=== PATIENT | male | born 1975 | race Caucasian/White ===

== ENCOUNTER 2024-12-19 14:59 | Emergency (ER) | payer MEDICARE, MEDICAID, SELFPAY ==
[2024-12-19] VITALS (8 sets, daily range): BP systolic 86–144; BP diastolic 55–88; PULSE 77–112; RESP 13–20; TEMP 36.6–36.8; O2SAT 98–100; BMI 17.2
--- NOTE | 2024-12-19 14:56 | ECG_ITS ---
APPROVED REPORT Exam: Resting ECG HR:81 bpm ECG Measurements Heart Rate 81 AXES IN 121 P 7 QRSd 102 QRS 91 QT 405 T 46 QTc 443 Conclusion Sinus rhythm Right axis deviation Electronically signed by : VICENTE BELL, 12/19/2024 22:48:00
--- NOTE | 2024-12-19 15:07 | XR_ITS ---
FINAL REPORT TECHNIQUE: Single view chest CLINICAL HISTORY: L sided CP radiating to L lateral chest FINDINGS: A single view of the chest was obtained. The heart and mediastinum are within normal limits. The lungs are clear. There is no pneumothorax. IMPRESSION: No acute cardiopulmonary process. Reviewed, Interpreted and Dictated by Calvin Harvey MD Transcribed by Geeta Walton Authenticated and [facility]
[2024-12-19 15:14] LABS: Basophils % 0.4 % (0.1-2.0); Eosinophils # 0.1 K/mm3 (0.0-0.4); Hematocrit 43.7 % (42.0-52.0); Hemoglobin 14.4 g/dL (14.1-18.0); Lymphocytes # 2.1 K/mm3 (0.7-4.5); Lymphocytes % 29.8 % (10-50); Mean Corpuscular Volume 94.2 fl (80-94); Mean Platelet Volume 10.2 fl (7.4-10.4); Monocytes # 0.6 K/mm3 (0.1-1.0); Monocytes % 8.8 % (1.7-9.3); Neutrophils # 4.2 K/mm3 (1.8-7.8); Neutrophils % 59.7 % (37.0-80.0); Platelet Count 203 K/mm3 (142-424); Red Blood Count 4.64 M/mm3 (4.60-6.20); Red Cell Distribution Width 12.9 % (11.5-17.5); White Blood Count 7.1 K/mm3 (4.8-10.8)
--- NOTE | 2024-12-19 15:17 | HMH.EDCP ---
Discharge Plan Disposition Patient Disposition: Home, Self-Care Prescriptions Prescriptions: No Action nicotine 21 mg/24 hr patch 24 hour 21 mg transdermal DAILY Patient Comments: pt does not take daily aspirin 81 mg tablet,chewable 81 mg PO DAILY Patient Comments: pt does not take daily Referrals Follow up/Referrals: Ronald Duong MD [Staff Physician] - See instructions Provider,MD Andrea [Primary Care Provider] - See instructions Activity Restrictions/Add. Instructions Additional Instructions/Restrictions: Call your family doctor to establish care for this visit to the emergency department and schedule follow-up within 48 hours to ensure improvement. If you have any worsening of your condition or any other concerning signs or symptoms, return to the emergency department or your primary care doctor for further evaluation. Refrain from stimulant use as it can affect your heart function. Follow-up with cardiology for further definitive management Clinical Impressions Clinical Impression: Stimulant use disorder, Elevated brain natriuretic peptide (BNP) level Print Language Print Language: Portuguese Discharge ED Provider: Talha Toro HPI General Chief Complaint: Chest Pain Stated Complaint: CHEST PAIN Time Seen by Provider: 12/19/24 15:01 History of Present Illness HPI narrative: Please note that above description of symptoms, in this electronic medical record under categorization of recalled from ER triage doctor by RN are reflective of an initial nursing assessment, however, is not reflective of my full history and physical exam that was personally taken and clarified. Consequentially, this preceding description of symptoms, which may include the patient's categorized chief complaint in the EMR, do not reflect my personal clinical impression, and the ultimate description of history of present illness and patient stated complaints should be deferred to this section of the note. Unless stated otherwise or congruent with this section of the note, additional signs, symptoms, or incongruence should be interpreted as inaccurate with my clinical impression. Related Data Home Medications ?Medication ?Instructions ?Recorded ?Confirmed aspirin 81 mg chewable tablet 81 mg PO DAILY 12/19/24 12/19/24 nicotine 21 mg/24 hr daily 21 mg transdermal DAILY 12/19/24 12/19/24 transdermal patch Allergies Allergy/AdvReac Type Severity Reaction Status Date / Time morphine Allergy Verified 05/03/22 14:38 Penicillins Allergy Verified 05/03/22 14:38 [facility] Disclaimer: The information contained in this section may have been updated after the patient was seen, as this information can be updated by other users. Medical History (Updated 12/19/24 @ 18:09 by Talha Toro MD) HTN (hypertension) History of alcohol dependence History of alcohol abuse Surgical History (Updated 12/19/24 @ 15:20 by Angela Suarez, VERONICA) Hx of heart artery stent Social History (Updated 12/19/24 @ 15:19 by Angela Suarez RN) Smoking Status: Current every day smoker tobacco type: cigarettes alcohol intake: current counseling given: Yes counseling provided: provider counseling current occupational status: disabled Travel in the last 8 weeks: None Have you lived/traveled outside [place] in past 30 days?: No Contact w/someone who lives/traveled outside US past 30 days?: No Exposure to someone with infectious disease in past 14 days?: No Do you have a fever (greater than 100.4 F or 38 C)?: No Have you tested positive for COVID-19: No Exposed to someone with COVID-19 in past 14 days?: No Do you have a sore throat?: No Do you have a cough?: No Do you have any weakness?: No Do you have any diarrhea?: No Are you experiencing any unusual bleeding?: No Do you have any muscle aches/pain?: No Do you have any abdominal pain?: No Are you experiencing loss of taste or smell?: No ROS Obtained: Yes All systems reviewed & no additional complaints except as documented Physical Exam General General appearance: alert Neck Neck exam: Present trachea midline Chest Chest inspection: Present normal inspection and symmetric chest wall rise Respiratory Respiratory exam: Present normal lung sounds bilaterally; Absent respiratory distress, wheezes, stridor, accessory muscle use or prolonged expiratory phase Cardiovascular Cardiovascular exam: Present regular rate, normal rhythm and other (Pulses equal and symmetric in upper and lower extremities) Abdominal Exam Abdominal exam: Present soft; Absent distention or tenderness Extremities Exam Extremities exam: Absent edema Neurological Exam Neurological exam: Present alert, oriented X3, CN II-XII intact and normal gait; Absent motor sensory deficit Skin Skin exam: Present warm and dry; Absent cyanosis, diaphoresis or pallor HEART Score HEART Score HEART Score assessment performed?: Yes History (anamnesis): Slightly suspicious ECG: Normal Age: 45-65 years Risk factors: 1-2 risk factors Troponin: </= normal limit HEART Score: 2 Critical Care Critical Care Time Critical Care Time: No Medical Decision Making Medical Records Medical records reviewed: Yes I reviewed the patient's medical records. Tarik Inquiry Pt receiving controlled substance: No Tarik was queried for this patient: No Vital Signs Vital Signs: 12/19/24 14:59 12/19/24 15:16 12/19/24 15:31 Temperature 97.8 F Temperature Source Oral Pulse Rate 77 79 Pulse Rate [Right] 84 Respiratory Rate 16 13 16 Blood Pressure 95/55 L 119/69 Blood Pressure [Right Arm] 122/78 Blood Pressure Mean [Right Arm] 92 Blood Pressure Source Blood Pressure Source [Right Arm] Automatic Cuff 02 Sat by Pulse Oximetry 100 Oxygen Delivery Method Room Air Room Air Room Air 12/19/24 16:00 12/19/24 16:31 12/19/24 17:01 Temperature Temperature Source Pulse Rate 78 91 H 112 H Pulse Rate [Right] Respiratory Rate 15 20 16 Blood Pressure 123/80 86/58 L 144/65 H Blood Pressure [Right Arm] Blood Pressure Mean [Right Arm] Blood Pressure Source Blood Pressure Source [Right Arm] 02 Sat by Pulse Oximetry Oxygen Delivery Method Room Air Room Air Room Air 12/19/24 17:30 12/19/24 18:36 Temperature 98.2 F Temperature Source Oral Pulse Rate 97 H 87 Pulse Rate [Right] Respiratory Rate 13 16 Blood Pressure 131/88 131/85 Blood Pressure [Right Arm] Blood Pressure Mean [Right Arm] Blood Pressure Source Automatic Cuff Blood Pressure Source [Right Arm] 02 Sat by Pulse Oximetry Oxygen Delivery Method Room Air Room Air Lab Data Labs: Lab Results 12/19/24 15:02: WBC 7.1, RBC 4.64, Hgb 14.4, Hct 43.7, MCV 94.2 H, MCH 31.0, MCHC 33.0, RDW 12.9, Plt Count 203, MPV 10.2, Neut % (Auto) 59.7, Lymph % (Auto) 29.8, Caroline % (Auto) 8.8, Eos % (Auto) 1.0, Baso % (Auto) 0.4, Neut # (Auto) 4.2, Lymph # (Auto) 2.1, Caroline # (Auto) 0.6, Eos # (Auto) 0.1, Baso # (Auto) 0.0, APTT 24.8, D-Dimer 0.32, Sodium 140, Potassium 3.8, Chloride 101, Carbon Dioxide 33 H, Anion Gap 9.8, BUN 18, Creatinine 0.90, Estimated Creat Clear 62, Estimated GFR 89, Est GFR ( Amer) 108, Glucose 101 H, Hemoglobin A1c 5.7, Calcium 9.0, Magnesium 1.8, Total Bilirubin 0.5, AST 31, ALT 24, Alkaline Phosphatase 72, Troponin I < 0.01, NT-Pro-B Natriuret Pep 1060 H, Total Protein 6.7, Albumin 4.4, Globulin 2.3, Albumin/Globulin Ratio 1.9 H, Lipase 233, TSH 0.56, Thyroxine (T4) 6.8, HCV Ab ADA w/Rflx PCR Qn Negative, HIV Ag/Ab Combo Qual Negative 12/19/24 15:02 12/19/24 15:02 Response Orders (Tests/Meds): ED MEDICATIONS Discontinued Medications Generic Name Dose Route Start Last Admin Trade Name Freq PRN Reason Stop Dose Admin Ketorolac Tromethamine 15 mg 12/19/24 15:07 12/19/24 15:46 Ketorolac 30mg/Ml Vial IV 12/19/24 15:08 15 mg ONCE ONE Administration ORDERS Category Date Time Status Consult Senior Paralegal [CONS] Routine Cons 12/19/24 15:22 Active Consult Senior Paralegal [CONS] Routine Cons 12/19/24 15:28 Active XR chest portable Stat Exams 12/19/24 15:07 Completed Complete Blood Count Auto Diff Stat Lab 12/19/24 15:02 Completed Comprehensive Metabolic Panel Stat Lab 12/19/24 15:02 Completed D-Dimer Stat Lab 12/19/24 15:02 Completed Drug Screen,Urine Stat Lab 12/19/24 15:08 Ordered HIV Combo Stat Lab 12/19/24 15:02 Completed Hemoglobin A1C Stat Lab 12/19/24 15:02 Completed Hepatitis C Ab Qual. W/ RFX Stat Lab 12/19/24 15:02 Completed Lipase Stat Lab 12/19/24 15:02 Completed Magnesium Stat Lab 12/19/24 15:02 Completed NT Pro Brain Natriuretic Pep. Stat Lab 12/19/24 15:02 Completed PTT [Activated Partial Thrombo Time] Stat Lab 12/19/24 15:02 Completed T4 (Thyroxine) Stat Lab 12/19/24 15:02 Completed TSH [Thyroid Stimulating Hormone] Stat Lab 12/19/24 15:02 Completed Troponin I Q3H Lab 12/19/24 18:15 Ordered Troponin I Q3H Lab 12/19/24 21:15 Ordered Troponin I Stat Lab 12/19/24 15:02 Completed MDM Narrative Medical Decision Narrative: This a 49-year-old male history of hypertension, hyperlipidemia, CAD status post stenting, methamphetamine use (no reported history of intravenous drug abuse) presenting with chest pain. Patient states that over the past couple of days he has had left-sided chest pain that radiates to his left lateral chest wall. Not currently having any pain and has not had pain in a couple of hours. States is associated lower extremity swelling and shortness of breath. States that he thinks it got worse after I used ice a couple of days ago. No syncope, nausea, vomiting, systemic signs or symptoms, etc. It should be noted the patient is currently using stimulant substances which is likely exacerbating patient's current clinical situation. History was obtained via conversation with patient. On arrival, patient hemodynamically stable, alert, oriented x4, appropriate, GCS 15, moving all extremities spontaneously, pupils equal and reactive to light. Full physical exam performed and significant for disgruntled, in no acute distress. Sleeping on my initial evaluation. Upon being woken up, is an unhappy individual. Speaking in full sentences, has no acute complaints. Lungs are clear,, cardiac exam without murmurs gallops or rubs. Pulses equal and symmetric in upper and lower extremities. He is neuro intact with NIHSS 0 and ambulatory. No lower extremity edema. Differential includes musculoskeletal, ACS, KS, metabolic abnormality, endocrinologic abnormality, dissection, PE, pneumothorax, among others, although I think dissection, PE, pneumothorax less likely Patient was given Toradol for symptomatic management and correction of underlying abnormalities. Patient placed on continuous cardiac monitoring and continuous pulse ox with initial blood pressure 122/78, heart rate 84, saturation 100% on room air. Independent interpretation of EKG shows sinus rhythm 81 bpm with OH interval 121, QRS 102, QTc 443. Normal axis. Patient does have high voltages essentially everywhere. No acute ST or T wave changes consistent with ischemia. Patient does have symmetric high voltage T waves V4 and V5, likely repolarization. Borderline right axis deviation. Workup independently interpreted and significant for nonactionable CBC. Nonactionable troponin. BNP mildly elevated 1000. On independent interpretation of imaging, no pneumothorax, no pneumomediastinum, normal aortic knob contour, no acute cardiopulmonary space disease otherwise. No evidence of fluid overload. See radiology read for full review of final results. Heart score 2. On reevaluation, patient still sleeping. Upon being woken up, patient disgruntled, demanding to stay. It was explained that patient has no reason to stay in the emergency department and is appropriate for outpatient management.. employee benefits specialist was consulted and case was discussed. See her note for recommendations. Given patient presentation, workup, history, this most likely represents chest pain, elevated BNP. Because patient at baseline without signs or symptoms of clinical decompensation, deemed appropriate for discharge. Results were relayed to patient who voiced understanding and were agreeable to outpatient management and follow up. I discussed my clinical impression with patient and answered all questions. At this time, the evidence for any other entities in the differential is insufficient to warrant any further testing or ED observation. This was explained as well. Advisory was given that persistent or worsening symptoms require further evaluation. I confirmed the understanding of this discussion. Patient states that he does not want to be discharged. Becoming more more aggressive with staff. Patient began having falsification of symptoms naming anything from hand pain, feet pain, leg pain, chest pain, impending seizure, etc. IVs were removed. Patient becoming increasingly unruly. Police were contacted. They escorted patient off the property. Instrument Calibrator disclaimer Much of this encounter note is an electronic entomology teacher spoken language to printed text. Electronic entomology teacher of the spoken language may permit errors. Although I have reviewed the note, some errors may still exist.
--- NOTE | 2024-12-19 15:17 | PC.NURSE ---
TOOK PT A WARM BLANKET. PT VOICES THAT HE DOES NOT NEED ANYTHING ELSE AT THIS TIME. CALL LIGHT IS WITHIN REACH OF THE PT.
[2024-12-19 15:23] LABS: Activated Partial Thrombo Time 24.8 seconds (22.5-28.5)
[2024-12-19 15:26] LABS: Lipase 233 U/L (23-300); Magnesium 1.8 mg/dl (1.6-2.3)
[2024-12-19 15:27] LABS: Alanine Aminotransferase 24 U/L (12-78); Albumin Level 4.4 g/dl (3.5-5.0); Albumin/Globulin Ratio 1.9 (1.1-1.8); Alkaline Phosphatase 72 U/L (38-126); Anion Gap 9.8 mEq/L (5-15); Aspartate Amino Transferase 31 U/L (17-59); Bilirubin,Total 0.5 mg/dl (0.2-1.3); Blood Urea Nitrogen 18 mg/dl (9-20); Carbon Dioxide 33 mmol/L (22.0-30.0); Chloride 101 mmol/L (98-107); Creatinine Clearance Estimated 62 mL/min (50-200); Estimated Glomerular Filt Rate 89 ml/min (>60); GFR (African American) 108 ML/MIN (>60); Globulin 2.3 g/dL (1.3-3.2); Glucose 101 mg/dl (74-100); Potassium 3.8 mmoL/L (3.5-5.1); Sodium 140 mmol/L (136-145); Total Protein,Serum 6.7 g/dl (6.3-8.2)
[2024-12-19 15:36] LABS: NT Pro Brain Natriuretic Pep. 1060 pg/mL (0-125)
[2024-12-19 15:44] LABS: Troponin I < 0.01 ng/ml (0.00-0.034)
[2024-12-19 15:45] LABS: T4 (Thyroxine) 6.8 ug/dl (5.53-11.0)
[2024-12-19] MEDS: KETOROLAC 30MG/ML VIAL 15 MG IV (15:46)
[2024-12-19 15:49] LABS: Hemoglobin A1C 5.7 % (4.0-6.0)
[2024-12-19 15:58] LABS: Thyroid Stimulating Hormone 0.56 uIU/mL (0.465-4.68)
[2024-12-19 16:03] LABS: D-Dimer 0.32 ug/mL (0.0-0.5)
[2024-12-19 16:41] LABS: HIV Combo NEGATIVE (Negative)
[2024-12-19 16:49] LABS: Hepatitis C Ab Qual. W/ RFX NEGATIVE (Negative)
--- NOTE | 2024-12-19 17:54 | PC.NURSE ---
ROUNDED ON THE PT. THE PT VOICES THAT HE DOES NOT NEED ANYTHING AT THIS TIME. CALL LIGHT IS WITHIN REACH OF THE PT.
--- NOTE | 2024-12-19 18:24 | PC.NURSE ---
Dr. Toro at bedside
--- NOTE | 2024-12-19 18:24 | PC.NURSE ---
Pt denies being able to contact anyone or having a ride home or funds to get back to [facility].
--- NOTE | 2024-12-19 18:40 | PC.NURSE ---
Let pt know there is a ride we can obtain for pt as soon as they return from [place].
--- NOTE | 2024-12-19 18:49 | PC.NURSE ---
I heard the pt yelling from the nurses station. I went in there to inquire what was wrong. [facility] medic and ADONIS BURCH were bedside talking with him. He was cussing, being aggressive and appears irate. pt has no explanation as to why. When asked what I could do to help he continued to yell without explanation. Dispatch notified to send an officer to deal with unruly pt.
--- NOTE | 2024-12-19 18:53 | PC.NURSE ---
Officer Skylar has arrived and is going bedside to the pt.
--- NOTE | 2024-12-19 18:55 | PC.NURSE ---
[facility] Police officers are at bedside
--- NOTE | 2024-12-19 19:01 | PC.NURSE ---
Notified supervisor wet pour of event and that pt would like to make a complaint.
--- NOTE | 2024-12-19 19:06 | PC.NURSE ---
[place] Police are going to take pt to where he would like to go in [place], [place]
== END 2024-12-19 19:08 | disposition home or self-care (01) ==
PROVIDERS: Emergency Provider Emergency Medicine
DX: F15.90 Other stimulant use, unspecified, uncomplicated (principal); R79.89 Other specified abnormal findings of blood chemistry; R07.89 Other chest pain; R06.02 Shortness of breath
CPT/HCPCS: 71045; 80053; 83036; 83690; 83735; 83880; 84436; 84443; 84484; 85025; 85378; 85730; 86803; 87389; 93005; 96374; 99284; J1885